=== PATIENT | male | born 1995 | race Hispanic/Latino ===

== ENCOUNTER 2022-08-07 11:17 | Emergency (ER) | payer OTHER ==
[2022-08-07] MEDS ORDERED: Acetaminophen 500 MG TAB ONE (11:50)
[2022-08-07] MEDS ORDERED: Ketorolac Tromethamine 30 MG/ML VIAL ONE (11:50)
[2022-08-07] MEDS ORDERED: diphenhydrAMINE 50 MG/ML VIAL ONE (11:50)
[2022-08-07] MEDS ORDERED: Metoclopramide HCl 10 MG/2 ML VIAL ONE (11:50)
== END 2022-08-07 13:35 | disposition home or self-care (01) ==
LOC: ERS 11:17
DX: G43.909 Migraine, unspecified, not intractable, without status migrainosus (principal); F17.290 Nicotine dependence, other tobacco product, uncomplicated
CPT/HCPCS: 96365; 96375; J1200; J1885; J2765